=== PATIENT | female | born 1970 | race Caucasian/White ===

== ENCOUNTER 2016-07-22 11:35 | Emergency (ER) | payer MEDICAID ==
[~2016-07-22] VITALS: Ht 154.9 cm; Wt 73.0 kg
[~2016-07-22 11:35] MED LIST: TEGRETOL200 MG PO
[2016-07-22 12:45] VITALS: BP 129/74
== END 2016-07-22 12:45 | disposition home or self-care (01) | DRG 607 ==
LOC: ED 11:35
DX: L91.8 Other hypertrophic disorders of the skin (principal); F32.9 Major depressive disorder, single episode, unspecified; G40.909 Epilepsy, unspecified, not intractable, without status epilepticus